=== PATIENT | male | born 1985 | race Hispanic/Latino ===

== ENCOUNTER 2022-05-29 18:00 | Outpatient (CLI) | payer BC | END 2022-05-29 18:01 | disposition home or self-care (01) | LOC: SLEEPLAB 18:00 | PROVIDERS: ATTEND Otolaryngology Plastic Surgery within the Head & Neck | DX: G47.33 Obstructive sleep apnea (adult) (pediatric) (principal); R06.83 Snoring; I10 Essential (primary) hypertension; R51.9 Headache, unspecified; G47.00 Insomnia, unspecified | CPT/HCPCS: 95800 ==